=== PATIENT | male | born 1950 | race Caucasian/White ===

== ENCOUNTER 2016-11-17 21:57 | Emergency (ER) | payer OTHER, MEDICARE ==
--- NOTE | 2016-11-17 22:00 | PDOC ---
History of Present Illness - General Chief Complaint: Laceration Stated Complaint: RT FOOT LAC Time Seen by Provider: 11/17/16 22:00 History Source: Patient Exam Limitations: No Limitations - History of Present Illness Initial Comments: 11/17/16 22:22 Pt presents to the ED complaining of laceration to the dorsum of the R great toe that occurred after he got something on the left foot that he wiped off onto the R foot. Denies other injuries. Applied pressure at home without relief of the bleeding, so he presented to the ED. Denies other complaints. Timing/Duration: 1/2 hour Severity: mild Past History - Past Medical History Allergies/Adverse Reactions: Allergies Allergy/AdvReac Type Severity Reaction Status Date / Time No Known Allergies Allergy Unverified 11/17/16 22:02 Home Medications: Ambulatory Orders Amlodipine Besylate [Norvasc -] 5 mg PO DAILY 11/17/16 Aspirin [Ecotrin] 81 mg PO DAILY 11/17/16 Atenolol [Tenormin -] 50 mg PO DAILY 11/17/16 Duloxetine HCl [Cymbalta] 60 mg PO DAILY 11/17/16 Trazodone HCl 100 mg PO HS 11/17/16 Review of Systems - Review of Systems Comments:: 11/17/16 22:24 Complaining of laceration to the foot--no other complaints. Is the patient limited Dutch proficient: No *Physical Exam - Physical Exam Comments: 11/17/16 22:25 + 1 cm very superficial laceration just below the R first MTP joint. No subcutaneous tissue exposed. No active bleeding on initial exam--small amount of bleeding after wound irrigated with saline. Procedures - Laceration/Wound Repair Right Dorsal Foot Wound Length: to 2.5 cm Wound's Depth, Shape: superficial Irrigated w/ Saline: Yes Betadine Prep: No Wound Debrided: minimal Wound Repaired With: Dermabond Layer Closure: No Sterile Dressing Applied: No Splint Applied: No Medical Decision Making - Medical Decision Making 11/17/16 22:26 Patient presents to the ED complaining of open wound to the R foot. Very superficial laceration on exam--wound is too superficial for foreign body. Laceration repaired with dermabond. Will discharge home. 11/17/16 22:27 *DC/Admit/Observation/Transfer Diagnosis at time of Disposition: Laceration - Discharge Dispostion Condition at time of disposition: Stable Admit: No - Referrals Referrals: Dong Diane [Primary Care Provider] - - Patient Instructions Printed Discharge Instructions: DI for Laceration Repair Additional Instructions: Return for bleeding, painful swollen, red tender foot, fever. The dermabond will fall off by itself. Try not to rub it, as this may make the dermabond come off before the wound is healed.
[2016-11-17 22:11] VITALS: BP 150/96; PULSE 75; TEMP 98.2; BMI 27.2
[2016-11-17] MEDS ORDERED: DIPHTH,PERTUSS(ACELL),TET 0.5 ML DISP.SYRIN IM ONE (22:22)
== END 2016-11-17 22:47 | disposition home or self-care (01) ==
LOC: FER 21:57
PROC: 0HQMXZZ Repair Right Foot Skin, External Approach (ICD-10-PCS; principal; 2016-11-17)
DX: S91.111A Laceration without foreign body of right great toe without damage to nail, initial encounter (principal); W45.8XXA Other foreign body or object entering through skin, initial encounter; Y93.89 Activity, other specified; Y92.9 Unspecified place or not applicable
CPT/HCPCS: 90715; 99281-25

== ENCOUNTER 2019-12-17 00:52 | Emergency (ER) | payer OTHER, MEDICARE ==
--- OUTSIDE RECORDS SUMMARY | 2019-12-17 00:59 | XMS ---
:1950 Author Organization [facility] Care Team Providers Name Role Phone Rogers Browne Unavailable Unavailable Nicky Clay DO Unavailable Unavailable Rasheeda Yost MD Unavailable Unavailable Long Schreiber MD Unavailable Unavailable Re-disclosure Warning The records that you are about to access may contain information from federally- assisted alcohol or drug abuse programs. If such information is present, then the following federally mandated warning applies: This information has been disclosed to you from records protected by federal confidentiality rules (42 CFR part 2). The federal rules prohibit you from making any further disclosure of this information unless further disclosure is expressly permitted by the written consent of the person to whom it pertains or as otherwise permitted by 42 CFR part 2. A general authorization for the release of medical or other information is NOT sufficient for this purpose. The Federal rules restrict any use of the information to criminally investigate or prosecute any alcohol or drug abuse patient.The records that you are about to access may contain highly sensitive health information, the redisclosure of which is protected by Article 27-F of the [facility] Public Health law. If you continue you may haveaccess to information: Regarding HIV / AIDS; Provided by facilities licensed or operated by the [facility] Office of Mental Health; or Provided by the [facility] Office for People With Developmental Disabilities. If such information is present, then the following [facility] mandated warning applies: This information has been disclosed to you from confidential records which are protected by state law. State law prohibits you from making any further disclosure of this information without the specific written consent of the person to whom it pertains, or as otherwise permitted by law. Any unauthorized further disclosure in violation of state law may result in a fine or fpc sentence or both. A general authorization for the release of medical or other information is NOT sufficient authorization for further disclosure. 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 Encounters Encounter Providers Location Date Indications Data Source(s ) Emergency Attender: 09/29/[place] Clay DO 09:44:00 PM [facility]pi [facility] EDT - 09/30/2019 02:41:00 AM EDT pneumonia [place] Patient discharged. Inpatient Attender: Rasheeda Yost 09/24/2019 SUSPESTED COVID [facility] MDAttender: Long 12:32:00 PM EDT - Hospital Candie MDAttender: 09/26/2019 Rogers BrowneAdmitter: 11:40:00 AM EDT Long Schreiber MD SUSPESTED COVID Patient discharged. Medications Medication Brand Start Product Dose Route Administrative Pharmacy [facility] Indications Reaction Description Data Name Date Form Instructions Instructions Source(s) Alprazolam Alpraz 07/02/ TABLET 0.25 ORAL active W mary grace 0.25 MG olam 2020 mg [facility] Oral Tablet 09:04: Hospit al 00 AM EDT Alprazolam Alpraz // TABLET 0.25 ORAL active W mary grace 0.25 MG olam 2020 mg [facility] Oral Tablet 09:04: Hospit al 00 AM EDT doxycycline Doxycy 07// CAPSULE, 100 ORAL active White hyclate 100 [place] 2020 DELAYED [place] MG Oral Hyclat 09:02: RELEASE Hospi [facility] Capsule e 00 AM [Vibramycin EDT ] Doxycycline Hyclate doxycycline Doxycy 07// CAPSULE, 100 ORAL active White hyclate 100 waldron 2020 DELAYED [place] [facility] MG Oral Hyclat 09:02: RELEASE Hospi [facility]cy Capsule e 00 AM [Vibramycin EDT ] Doxycycline Hyclate Amlodipine Amlodi TABLET 5 mg ORAL active Whi te 5 MG Oral pine [facility] Tablet [facility] [[facility]] te Amlodipine Besylate Trazodone Trazod TABLET 50 mg ORAL complet Wh ite Hydrochlori one ed [facility] de 150 [facility] Oral Tablet Trazodone Hcl Trazodone Trazod TABLET 100 ORAL active Whit e Hydrochlori one mg [facility] de 150 [facility] Oral Tablet Trazodone Hcl Trazodone Trazod TABLET 100 ORAL active Whit e Hydrochlori one mg [facility] de 150 MG [facility] Oral Tablet Trazodone Hcl gabapentin Gabape CAPSULE 400 ORAL active Wh ite 400 MG Oral ntin mg [facility] Capsule [facility] Gabapentin duloxetine Duloxe CAPSULE, 60 mg ORAL active White 60 MG anselmo DELAYED [facility] Delayed Hcl RELEASE Hospital Release Oral Capsule [Cymbalta] Duloxetine Hcl Trazodone Trazod TABLET 50 mg ORAL complet Wh ite Hydrochlori one ed [facility] de 150 MG [facility] Oral Tablet Trazodone Hcl duloxetine Duloxe CAPSULE, 60 mg ORAL active [facility] 60 MG anselmo DELAYED [facility] Delayed Hcl RELEASE Hospital Release Oral Capsule [Cymbalta] Duloxetine Hcl Amlodipine Amlodi TABLET 5 mg ORAL active Whi te 5 MG Oral pine [facility] Tablet [facility] [Norvasc] te Amlodipine Besylate Atenolol 50 Atenol TABLET 50 mg ORAL active W mary grace MG Oral ol [facility]t [facility] gabapentin Gabape CAPSULE 400 ORAL active Wh ite 400 MG Oral ntin mg [facility] Capsule [facility] Gabapentin Atenolol 50 Atenol TABLET 50 mg ORAL active W mary grace MG Oral ol [facility] Tablet [facility] Insurance Providers Payer name Policy type Policy ID Covered Covered constitution party's Policy P cyrus / Coverage constitution party ID relationship to Hung Inf ormation type hung [facility] [id number] SP [id number] CARE [employer]IONS MEDICARE [id number] SP [id number] A [facility] [id number] PT [id number] C[employer] MEDICARE [id number] PT [id number] [facility] [id number] PT [id number] CARE OPTIONS [facility] [id number] SP [id number] (PHS) Problems, Conditions, and Diagnoses Code Display Name Description Problem Type Effective Dates Data Source(s) R06.02 Shortness of breath R06.02 Diagnosis 09/29/2019 [facility] 09:57:00 PM EDT Hospital M79.7 Fibromyalgia M79.7 Diagnosis 09/29/2019 [facility] 09:57:00 PM EDT Hospital E87.1 Hypo-osmolality and E87.1 Diagnosis 09/29/2019 [facility] hyponatremia 09:57:00 PM EDT Hospita l Z87.891 Personal history of Z87.891 Diagnosis 09/24/2019 [facility] nicotine dependence 03:41:00 PM EDT Hospital Z87.01 Personal history of Z87.01 Diagnosis 09/24/2019 [facility] pneumonia 03:41:00 PM EDT Hospital (recurrent) Z20.828 Contact with and Z20.828 Diagnosis 09/24/[address] [place] (suspected) exposure 03:41:00 PM EDT Hospital to other viral communicable diseases K51.90 Ulcerative colitis, K51.90 Diagnosis 09/24/2019 [facility] unspecified, without 03:41:00 PM EDT Hospital complications I48.0 Paroxysmal atrial I48.0 Diagnosis 09/24/2019 [place] fibrillation 03:41:00 PM EDT Hospita l I10 Essential (primary) I10 Diagnosis 09/24/2019 [facility] hypertension 03:41:00 PM EDT Hospita l R91.1 Solitary pulmonary R91.1 Diagnosis 09/24/2019 [facility] nodule 03:41:00 PM EDT Hospital Z11.59 Encounter for Z11.59 Diagnosis 09/24/2019 [place] screening for other 03:41:00 PM EDT Hospital viral diseases J18.9 Pneumonia, J18.9 Diagnosis 09/24/2019 [facility] unspecified organism 03:41:00 PM EDT Hospital Surgeries/Procedures Procedure Description Date Indications Data Source(s) Computed tomography 09/30/[address] [place] angiography of thorax 12:00:00 AM Hospit al (procedure) EDT Diagnostic radiography of 09/29/2019 ite [place] chest, combined 12:00:00 AM Hospital posteroanterior and lateral EDT (procedure) Electrocardiographic procedure 09/29/2019 [facility] (procedure) 12:00:00 AM Hospital EDT Plain chest X-ray (procedure) 09/26/2019 [facility] 12:00:00 AM Hospital EDT Plain chest X-ray (procedure) 09/26/2019 [facility] 12:00:00 AM Hospital EDT Chest percussion therapy 09/24/2019 [facility] [place] (regime/therapy) 12:00:00 AM Hospital EDT Incentive spirometry 09/24/2019 [place] (regime/therapy) 12:00:00 AM Hospital EDT Computed tomography of chest 09/24/2019 [facility] without contrast 12:00:00 AM Hospital EDT Electrocardiographic procedure 09/24/2019 [facility] (procedure) 12:00:00 AM Hospital EDT Chest percussion therapy 09/24/2019 [facility] [place] (regime/therapy) 12:00:00 AM Hospital EDT Incentive spirometry 09/24/2019 [place] (regime/therapy) 12:00:00 AM Hospital EDT Computed tomography of chest 09/24/2019 [facility] without contrast 12:00:00 AM Hospital EDT Electrocardiographic procedure 09/24/2019 [facility] (procedure) 12:00:00 AM Hospital EDT Results ID Date Data Source [id number] 12/07/2019 01:36:00 PM EDT [facility] Name Value Range Interpretation Description Data Sup porting Code Source(s) Document(s ) 2019 Novel [facility] Coronavirus RNA Interpretation Unspecified Specimen Qualitative RENE Probe Detection This lab was ordered by [facility] reported by [facility]. ID Date Data Source [id number] 09/30/2019 01:00:00 AM EDT [facility] Value Range Interpretation Description Data Sup porting Code Source(s) Document(s ) Erythrocytes 0-3 [facility] [#/area] in /[HPF] Hospital Urine sediment by Microscopy high power field ID Date Data Source [id number] 09/30/2019 01:00:00 AM EDT [facility] Value Range Interpretation Description Data Sup porting Code Source(s) Document(s ) Leukocytes 0-3 [facility] [#/area] in /[HPF] Hospital Urine sediment by Microscopy high power field ID Date Data Source [id number] 09/30/2019 01:00:00 AM EDT [facility] Value Range Interpretation Description Data Sup porting Code Source(s) Document(s ) Leukocyte NEGATIVE [facility] esterase [facility] [Presence] in Urine by Test strip ID Date Data Source [id number] 09/30/2019 01:00:00 AM EDT [facility] Name Value Range Interpretation Description Data Sup porting Code Source(s) Document(s ) URINE NEGATIVE [facility] NITRITES [facility] ID Date Data Source [id number] 09/30/2019 01:00:00 AM EDT [facility] Name Value Range Interpretation Description Data Sup porting Code Source(s) Document(s ) Erythrocytes NEGATIVE [facility] [#/volume] in Hospital Urine by Test strip ID Date Data Source [id number] 09/30/2019 01:00:00 AM EDT [facility] Value Range Interpretation Code Description Data Nelda rce(s) Supporting Document(s ) Bilirubin. NEGATIVE [facility] total Hospital [Presence] in Urine by Test strip ID Date Data Source [id number] 09/30[facility] Interpretation Description Data Sup porting Code Source(s) Document(s ) Urobilinogen 0.2 [facility] [Units/volume] mg/dL Hospital in Urine by Test strip ID Date Data Source [id number] 09/30/2019 01:00:00 AM EDT [facility] Value Range Interpretation Description Data Sup porting Code Source(s) Document(s ) Ketones NEGATIVE [facility] [Mass/volume Hospital ] in Urine by Test strip ID Date Data Source [id number] 09/30/2019 [facility] Value Range Interpretation Description Data Sup porting Code Source(s) Document(s ) Glucose NEGATIVE [facility] [Mass/volume Hospital ] in Urine by Test strip ID Date Data Source [id number] 09/30/2019 01:00:00 AM EDT [facility] Name Value Range Interpretation Code Description Data Nelda rce(s) Supporting Document(s ) Protein 1+ [facility] [Presence] Hospital in Urine by Test strip ID Date Data Source [id number] 09/30/2019 01:00:00 AM EDT [facility] Name Value Range Interpretation Code Description Data Nelda rce(s) Supporting Document(s ) pH of Urine 7.0 [facility] by Test Hospital strip ID Date Data Source [id number] 09/30/2019 [facility] Name Value Range Interpretation Code Description Data Supporting Source(s) Document(s ) Specific 1.037 [facility] gravity of Hospital Urine by Test strip ID Date Data Source [id number] 09/30/2019 01:00:00 AM EDT [facility] Name Value Range Interpretation Description Data Sup porting Code Source(s) Document(s ) Clarity in Urine CLEAR [facility] by Refractometry Hospital automated ID Date Data Source [id number] 09/30/2019 [facility]:00[facility] Name Value Range Interpretation Code Description Data Nelda rce(s) Supporting Document(s ) Color of YELLOW [facility] Urine Hospital ID Date Data Source [id number] 09/29/2019 10:10:00 [facility] [employer]:HERMINIA ELDRIDGE Name Value Range Interpretation Description Data Sup porting Code Source(s) Document(s ) Glucose 111 mg/dL [facility] [Mass/volume] [facility] in Capillary blood by Glucometer ID Date Data Source [id number] 09/29/2019 10:08:[facility] Name Value Range Interpretation Description Data Sup porting Code Source(s) Document(s ) Ferritin 48.0 [facility] [Mass/volume ng/mL Hospital ] in Serum or Plasma ID Date Data Source [id number] 09/29/2019 10:08:00 PM [facility] TEST PERFORMED BY [employer] UL[employer] SENSITIVE [facility] CHEMILUMINESCENCE METHOD. Name Value Range Interpretation Description Data Sup porting Code Source(s) Document(s ) Troponin < 0.01 [facility] I.cardiac ng/mL Hospital [Mass/volume ] in Serum or Plasma ID Date Data Source [id number] 09/29/2019 10:08:00 PM EDT [facility] Name Value Range Interpretation Description Data Sup porting Code Source(s) Document(s ) Procalcitonin 1.4 [facility] [Mass/volume] in ng/mL Hospital Serum or Plasma ID Date Data Source [id number] 09/29/2019 10:08:00 PM EDT [facility] Name Value Range Interpretation Description Data Sup porting Code Source(s) Document(s ) Lactate 0.6 [facility] [Moles/volum mmol/L Hospital e] in Serum or Plasma ID Date Data Source [id number] 09/29/2019 10:08:[facility] Name Value Range Interpretation Code Description Data Nelda rce(s) Supporting Document(s ) Lipase 21 U/L [facility] [Enzymatic Hospital activity/vo lume] in Serum or Plasma ID Date Data Source [id number] 09/29/2019 10:08:[facility] Name Value Range Interpretation Description Data Sup porting Code Source(s) Document(s ) Magnesium 2.2 mg/dL [facility] [Mass/volume] Hospital in Serum or Plasma ID Date Data Source [id number] 09/29/2019 10:08:[facility] Name Value Range Interpretation Code Description Data Supporting Source(s) Document(s ) Creatine 49 U/L [facility] kinase Hospital [Enzymatic activity/volu me] in Serum or Plasma ID Date Data Source [id number] 09/29/2019 10:08:00 PM EDT [facility] Name Value Range Interpretation Description Data Sup porting Code Source(s) Document(s ) Lactate 156 U/L [facility] dehydrogenase Hospital [Enzymatic activity/volume] in Serum or Plasma ID Date Data Source [id number] 09/29/2019 10:08:00 PM EDT [facility] Name Value Range Interpretation Description Data Sup porting Code Source(s) Document(s ) Aspartate 61 U/L [place] aminotransferase [facility] [Enzymatic Hospital activity/volume] in Serum or Plasma ID Date Data Source [id number] 09/29/2019 10:08:00 PM EDT [facility] Name Value Range Interpretation Description Data Sup porting Code Source(s) Document(s ) Alanine 90 U/L [place] aminotransferase [facility] [Enzymatic Hospital activity/volume] in Serum or Plasma ID Date Data Source [id number] 09/29/2019 10:08:[facility] Name Value Range Interpretation Description Data Sup porting Code Source(s) Document(s ) Alkaline 47 U/L [facility] phosphatase [facility] [Enzymatic activity/volume ] in Serum or Plasma ID Date Data Source [id number] 09/29/2019 10:08:[facility] Name Value Range Interpretation Description Data Sup porting Code Source(s) Document(s ) Bilirubin.t 0.4 mg/dL [facility] [Mass/volum e] in Serum or Plasma ID Date Data Source [id number] 09/29/2019 10:08:[facility] Name Value Range Interpretation Code Description Data Nelda rce(s) Supporting Document(s ) Albumin/Glob 1.8 [facility] ulin [Mass Hospital Ratio] in Serum or Plasma ID Date Data Source [id number] 09/29/2019 10:08:00 PM EDT [facility] Name Value Range Interpretation Description Data Sup porting Code Source(s) Document(s ) Albumin 4.5 g/dL [facility] [Mass/volume Hospital ] in Serum or Plasma ID Date Data Source [id number] 09/29/2019 10:08:00 PM EDT [facility] Name Value Range Interpretation Description Data Sup porting Code Source(s) Document(s ) Protein 7.0 g/dL [facility] [Mass/volume Hospital ] in Serum or Plasma ID Date Data Source [id number] 09/29/2019 10:08:00 PM EDT [facility] Name Value Range Interpretation Description Data Sup porting Code Source(s) Document(s ) Calcium 10.0 [facility] [Mass/volume mg/dL Hospital ] in Serum or Plasma ID Date Data Source [id number] 09/29/2019 10:08:00 PM EDT [facility] Name Value Range Interpretation Code Description Data Nelda rce(s) Supporting Document(s ) Urea 11.0 [facility] nitrogen/Cre Hospital atinine [Mass Ratio] in Serum or Plasma ID Date Data Source [id number] 09/29/2019 10:08:00 PM EDT [facility] Name Value Range Interpretation Description Data Sup porting Code Source(s) Document(s ) Creatinine 1.0 mg/dL [facility] [Mass/volume] Hospital in Serum or Plasma ID Date Data Source [id number] 09/29/2019 10:08:00 PM EDT [facility] Name Value Range Interpretation Description Data Sup porting Code Source(s) Document(s ) Urea 11 mg/dL [facility] nitrogen Hospital [Mass/volume ] in Serum or Plasma ID Date Data Source [id number] 09/29/2019 10:08:00 PM EDT [facility] Name Value Range Interpretation Code Description Data Nelda rce(s) Supporting Document(s ) Anion gap in 11 [facility] Serum or [facility] Plasma ID Date Data Source [id number] 09/29/2019 10:08:00 PM EDT [facility] Name Value Range Interpretation Description Data Sup porting Code Source(s) Document(s ) Carbon 29 mmol/L [facility] dioxide, Hospital total [Moles/volu me] in Serum or Plasma ID Date Data Source [id number] 09/29/2019 10:08:00 PM EDT [facility] Value Range Interpretation Description Data Sup porting Code Source(s) Document(s ) Chloride 96 mmol/L [facility] [Moles/volum Hospital e] in Serum or Plasma ID Date Data Source [id number] 09/29/2019 10:08:00 PM EDT [facility] Name Value Range Interpretation Description Data Sup porting Code Source(s) Document(s ) Potassium 4.0 [facility] [Moles/volume mmol/L Hospital ] in Serum or Plasma ID Date Data Source [id number] 09/29/2019 10:08:00 PM EDT [facility] Name Value Range Interpretation Description Data Sup porting Code Source(s) Document(s ) Sodium 132 mmol/L [facility] [Moles/volu Hospital me] in Serum or Plasma ID Date Data Source [id number] 09/29/2019 10:08:00 PM EDT [facility] Name Value Range Interpretation Description Data Sup porting Code Source(s) Document(s ) Glucose 106 mg/dL [facility] [Mass/volume Hospital ] in Serum or Plasma ID Date Data Source [id number] 09/29/2019 10:08:00 PM EDT [facility] A VALUE LESS THAN 500 NG/ML FEU IN PATIE NTS UNDER AGE 50, WHEN COMBINED WITH A CLINICAL ASSESSMENT OF LOW PRETEST PROBA BILITY, HAS BEEN SHOWN TO HAVE A HIGH NEGATIVE PREDICTIVE VALUE FOR DVT OR PE. USING AGE-ADJUSTED THRESHOLDS (AGE X 10) IN PATIENTS OLDER THAN 50 YEARS IS RECOMMEN DED FOR DETERMINING WHETHER IMAGING IS WARRANTED.D-DIMER IS NOT A SPECIFIC ELBA ER FOR DVT OR PE AND CAN BE ELEVATED IN THE ELDERLY WELL IN THE FOLLOWING COND ITIONS: , CANCER, INFECTION, DIC, TRAUMA AND INFLAMMATION. Name Value Range Interpretation Description Data Sup porting Code Source(s) Document(s ) Fibrin 804 ng/mL [facility]U [facility] [Mass/volume ] in Platelet poor plasma ID Date Data Source [id number] 09/29/2019 10:08:00 PM EDT [facility] THERAPEUTIC RANGES:UNFRACTIONATED HEPARI N THERAPY: 60-90 SECONDSARGATROBAN THERAPY: 49-99 SECONDS Name Value Range Interpretation Description Data Sup porting Code Source(s) Document(s ) aPTT in 30.7 s [facility] Platelet poor Hospital plasma by Coagulation assay ID Date Data Source [id number] 09/29/2019 10:08:00 PM EDT [facility] THERAPEUTIC RANGE FOR STANDARD ORALANTIC OAGULANT THERAPY: 2.0-3.0THERAPEUTIC RANGE FOR HIGH DOSE ORALANTICOAGULANT THERAPY (MECHANICAL HEARTVALVE REPLACEMENT): 2.5-3.5 Name Value Range Interpretation Description Data Sup porting Code Source(s) Document(s ) INR in Platelet 1.1 [facility] poor plasma by Hospital Coagulation assay ID Date Data Source [id number] 09/29/2019 10:08:00 PM EDT [facility] Name Value Range Interpretation Description Data Sup porting Code Source(s) Document(s ) PT panel - 13.4 s [facility] Platelet poor Hospital plasma by Coagulation assay ID Date Data Source [id number] 09/29/2019 10:08:00 PM EDT [facility] Name Value Range Interpretation Description Data Sup porting Code Source(s) Document(s ) Manual MANUAL [facility] differential Hospital performed [Presence] in Blood ID Date Data Source [id number] 09/29/2019 10:08:00 PM EDT [facility] Value Range Interpretation Code Description Data Nelda rce(s) Supporting Document(s ) Cells 100 [facility] Hospital Total [#] in Blood ID Date Data Source [id number] 09/29/2019 10:08:00 PM EDT [facility] Value Range Interpretation Code Description Data Supporting Source(s) Document(s ) PLATELET NORMAL [facility] COMMENT Hospital ID Date Data Source [id number] 09/29/2019 10:08:00 PM EDT [facility] Value Range Interpretation Code Description Data Nelda rce(s) Supporting Document(s ) RBC COMMENT NORMAL [facility] ID Date Data Source [id number] 09/29/2019 [facility] Interpretation Description Data Sup porting Code Source(s) Document(s ) Eosinophils 0.16 [facility] [#/volume] in 10*3/uL Hospital Blood by Manual count ID Date Data Source [id number] 09/29/2019 10:08:00 PM EDT [facility] Name Value Range Interpretation Description Data Sup porting Code Source(s) Document(s ) Monocytes 0.98 [facility] [#/volume] in 10*3/uL Hospital Blood by Manual count ID Date Data Source [id number] 09/29/2019 10:08:00 PM EDT [facility] Name Value Range Interpretation Description Data Sup porting Code Source(s) Document(s ) Lymphocytes 1.80 [facility] [#/volume] in 10*3/uL Hospital Blood by Manual count ID Date Data Source [id number] 09/29/2019 10:08:00 PM EDT [facility] Name Value Range Interpretation Description Data Sup porting Code Source(s) Document(s ) Neutrophils 5.25 [facility] [#/volume] in 10*3/uL Hospital Blood by Manual count ID Date Data Source [id number] 09/29/2019 10:08:00 PM EDT [facility] Name Value Range Interpretation Description Data Sup porting Code Source(s) Document(s ) Eosinophils/100 2 % [facility] leukocytes in Hospital Blood by Manual count ID Date Data Source [id number] 09/29/2019 10:08:00 PM EDT [facility] Value Range Interpretation Description Data Sup porting Code Source(s) Document(s ) Monocytes/100 12 % [facility] leukocytes in Hospital Blood by Manual count ID Date Data Source [id number] 09/29/2019 10:08:00 PM EDT [facility] Value Range Interpretation Description Data Sup porting Code Source(s) Document(s ) Lymphocytes/100 22 % [facility] leukocytes in [facility] Blood by Manual count ID Date Data Source [id number] 09/29/2019 10:08:00 PM EDT [facility] Value Range Interpretation Description Data Sup porting Code Source(s) Document(s ) Neutrophils/100 64 % [facility] leukocytes in [facility] Blood by Manual count ID Date Data Source [id number] 09/29/2019 10:08:00 PM EDT [facility] Value Range Interpretation Description Data Sup porting Code Source(s) Document(s ) Platelet mean 9.4 fL [facility] volume [facility] [Entitic volume] in Blood by Automated count ID Date Data Source [id number] 09/29[facility] Interpretation Description Data Sup porting Code Source(s) Document(s ) Platelets 256 [facility] [#/volume] in 10*3/uL Hospital Blood by Automated count ID Date Data Source [id number] 09/29/2019 10:08:00 PM EDT [facility] Value Range Interpretation Description Data Sup porting Code Source(s) Document(s ) Erythrocyte 11.1 % [facility] distribution [facility] width [Ratio] by Automated count ID Date Data Source [id number] 09/29/2019 [facility] Value Range Interpretation Description Data Sup porting Code Source(s) Document(s ) Erythrocyte mean 35.3 [facility] corpuscular g/dL Hospital hemoglobin concentration [Mass/volume] by Automated count ID Date Data Source [id number] 09/29/2019 10:08:[address] [facility] [place] Value Range Interpretation Description Data Sup porting Code Source(s) Document(s ) Erythrocyte 30.3 pg [facility] corpuscular hemoglobin [Entitic mass] by Automated count ID Date Data Source [id number] 09/29/2019 10:08:[address] [facility] Value Range Interpretation Description Data Sup porting Code Source(s) Document(s ) Erythrocyte 85.7 fL [facility] corpuscular volume [Entitic volume] by Automated count ID Date Data Source [id number] 09/29/2019 10:08:[address] [facility] Value Range Interpretation Description Data Sup porting Code Source(s) Document(s ) Hematocrit 40.8 % [facility] [Volume Hospital Fraction] of Blood by Automated count ID Date Data Source [id number] 09/29/2019 10:08:00 PM EDT [facility] Name Value Range Interpretation Description Data Sup porting Code Source(s) Document(s ) Hemoglobin 14.4 g/dL [facility] [Mass/volume] Hospital in Blood ID Date Data Source [id number] 09/29/2019 10:08:00 PM EDT [facility] Name Value Range Interpretation Description Data Sup porting Code Source(s) Document(s ) Erythrocytes 4.76 [facility] [#/volume] in 10*6/uL Hospital Blood by Automated count ID Date Data Source [id number] 09/29/2019 10:08:00 PM EDT [facility] Name Value Range Interpretation Description Data Sup porting Code Source(s) Document(s ) Leukocytes 8.2 [facility] [#/volume] in 10*3/uL Hospital Blood by Automated count ID Date Data Source [id number] 09/26/2019 06:55:00 AM EDT [facility] It is not known at this time if the pres ence of antibodies to SARS-CoV-2 confers immunity to re-infection.Negative result s do not rule out SARS-CoV-2 infection, particularly in those who have been in c ontact with the virus. Follow up testing with a molecular diagnostic assay should be considered to rule out infection in these individuals.Results from antibody testin g should not be used as the sole basis to diagnose or exclude SARS-CoV2 infection or to inform infection status.Positive results may be due to past or present in fection with [id number] coronavirus strains, such as coronavirus HKU1, NL63, OC43, 229E or other possible causesThis test is not authorized for donor screening.Th e [employer] SARS-CoV-2 Total antibody assay has not been FDA cleared or approved; the test has been authorized by FDA under an Emergency Use Authorization (EUA).This test is only authorized for the duration of the emergency use declaratio n that circumstances exist justifying the authorization of emergency use of in vit ro diagnostic tests for detection and/or diagnosis of COVID-19, unless the author ization is terminated or revoked sooner.This test has been authorized only for detec ting the presence of antibodies against SARS-CoV-2, not for any other viruses or pathogens.For prescription use only. Name Value Range Interpretation Code Description Data Nelda rce(s) Supporting Document(s ) SARS COV2 NEGATIVE [facility] TOTAL AB Hospital ID Date Data Source [id number] 09/26/2019 06:55:00 AM EDT [facility] Name Value Range Interpretation Code Description Data Supporting Source(s) Document(s ) NUCLEATED RBCS 0.0 % [facility] (AUTO Hospital DIFF%)DIS ID Date Data Source [id number] 09/26/2019 06:55:00 AM EDT [facility] Name Value Range Interpretation Description Data Sup porting Code Source(s) Document(s ) Differential AUTOMATED [facility] cell count [facility] method - Blood ID Date Data Source [id number] 09/26/2019 06:55:00 AM EDT [facility] Name Value Range Interpretation Description Data Sup porting Code Source(s) Document(s ) Immature 0.06 [facility] granulocytes 10*3/uL Hospital [#/volume] in Blood by Automated count ID Date Data Source [id number] 09/26/2019 06:55:00 AM EDT [facility] Name Value Range Interpretation Description Data Sup porting Code Source(s) Document(s ) Basophils 0.03 [facility] [#/volume] in 10*3/uL Hospital Blood by Automated count ID Date Data Source [id number] 09/26/2019 06:55:00 AM EDT [facility] Name Value Range Interpretation Description Data Sup porting Code Source(s) Document(s ) Eosinophils 0.21 [facility] [#/volume] in 10*3/uL Hospital Blood by Automated count ID Date Data Source [id number] 09/26/2019 06:55:00 AM EDT [facility] Value Range Interpretation Description Data Sup porting Code Source(s) Document(s ) Monocytes 0.83 [facility] [#/volume] in 10*3/uL Hospital Blood by Automated count ID Date Data Source [id number] 09/26/2019 06:55:00 AM EDT [facility] Value Range Interpretation Description Data Sup porting Code Source(s) Document(s ) Lymphocytes 1.57 [facility] [#/volume] in 10*3/uL Hospital Blood by Automated count ID Date Data Source [id number] 09/26/2019 06:55:00 AM EDT [facility] Value Range Interpretation Description Data Sup porting Code Source(s) Document(s ) Neutrophils 4.47 [facility] [#/volume] in 10*3/uL Hospital Blood by Automated count ID Date Data Source [id number] 09/26/2019 06:55:00 AM EDT [facility] Value Range Interpretation Description Data Sup porting Code Source(s) Document(s ) Nucleated 0.0 % [facility] erythrocytes/10 Hospital 0 leukocytes [Ratio] in Blood by Automated count ID Date Data Source [id number] 09/26/2019 06:55:00 AM EDT [facility] Value Range Interpretation Description Data Sup porting Code Source(s) Document(s ) Immature 0.8 % [facility] granulocytes/10 Hospital 0 leukocytes in Blood by Automated count ID Date Data Source [id number] 09/26/2019 06:55:00 AM EDT [facility] Value Range Interpretation Description Data Sup porting Code Source(s) Document(s ) Basophils/100 0.4 % [facility] leukocytes in Hospital Blood by Automated count ID Date Data Source [id number] 09/26/2019 06:55:00 AM EDT [facility] Name Value Range Interpretation Description Data Sup porting Code Source(s) Document(s ) Eosinophils/100 2.9 % [facility] leukocytes in Hospital Blood by Automated count ID Date Data Source [id number] 09/26/2019 06:55:00 AM EDT [facility] Name Value Range Interpretation Description Data Sup porting Code Source(s) Document(s ) Monocytes/100 11.6 % [facility] leukocytes in [facility] Blood by Automated count ID Date Data Source [id number] 09/26/2019 [facility] Value Range Interpretation Description Data Sup porting Code Source(s) Document(s ) Lymphocytes/10 21.9 % [facility] 0 leukocytes Hospital in Blood by Automated count ID Date Data Source [id number] 09/26/2019 [facility]:55[facility] Name Value Range Interpretation Description Data Sup porting Code Source(s) Document(s ) Neutrophils/10 62.4 % [facility] 0 leukocytes Hospital in Blood by Automated count ID Date Data Source [id number] 09/26/2019 06:55:00 AM [facility] It is not known at this time if the pres ence of antibodies to SARS-CoV-2 confers immunity to re-infection.Negative result s do not rule out SARS-CoV-2 infection, particularly in those who have been in c ontact with the virus. Follow up testing with a molecular diagnostic assay should be considered to rule out infection in these individuals.Results from antibody testin g should not be used as the sole basis to diagnose or exclude SARS-CoV2 infection or to inform infection status.Positive results may be due to past or present in fection with xxj-[id number]-CyG1 coronavirus strains, such as coronavirus HKU1, NL63, OC43, 229E or other possible causesThis test is not authorized for donor screening.Th e [employer] SARS-CoV-2 Total antibody assay has not been FDA cleared or approved; the test has been authorized by FDA under an Emergency Use Authorization (EUA).This test is only authorized for the duration of the emergency use declaratio n that circumstances exist justifying the authorization of emergency use of in vit ro diagnostic tests for detection and/or diagnosis of COVID-19, unless the author ization is terminated or revoked sooner.This test has been authorized only for detec ting the presence of antibodies against SARS-CoV-2, not for any other viruses or pathogens.For prescription use only. Name Value Range Interpretation Code Description Data Nelda rce(s) Supporting Document(s ) SARS COV2 NEGATIVE [facility] TOTAL AB Hospital ID Date Data Source [id number] 09/26/2019 06:55:00 AM EDT [facility] Name Value Range Interpretation Description Data Sup porting Code Source(s) Document(s ) Aspartate 20 U/L [facility] aminotransferase [facility] [Enzymatic Hospital activity/volume] in Serum or Plasma ID Date Data Source [id number] 09/26/2019 06:55[facility] Name Value Range Interpretation Description Data Sup porting Code Source(s) Document(s ) Alanine 25 U/L [facility] aminotransferase [facility] [Enzymatic Hospital activity/volume] in Serum or Plasma ID Date Data Source [id number] 09/26/2019 06:55:00 AM EDT [facility] Name Value Range Interpretation Description Data Sup porting Code Source(s) Document(s ) Alkaline 42 U/L [facility] phosphatase [facility] [Enzymatic activity/volume ] in Serum or Plasma ID Date Data Source [id number] 09/26/2019 06:55:00 AM [facility] Name Value Range Interpretation Description Data Sup porting Code Source(s) Document(s ) Bilirubin.t 0.4 mg/dL [facility] [Mass/volum e] in Serum or Plasma ID Date Data Source [id number] 09/26/2019 06:55:00 AM EDT [facility] Name Value Range Interpretation Code Description Data Nelda rce(s) Supporting Document(s ) Albumin/Glob 1.6 [facility] ulin [Mass Hospital Ratio] in Serum or Plasma ID Date Data Source [id number] 09/26/2019 06:55:00 AM EDT [facility] Name Value Range Interpretation Description Data Sup porting Code Source(s) Document(s ) Albumin 3.9 g/dL [facility] [Mass/volume Hospital ] in Serum or Plasma ID Date Data Source [id number] 09/26/2019 06:55:00 AM EDT [facility] Name Value Range Interpretation Description Data Sup porting Code Source(s) Document(s ) Protein 6.3 g/dL [facility] [Mass/volume Hospital ] in Serum or Plasma ID Date Data Source [id number] 09/26/2019 06:55:00 AM EDT [facility] Name Value Range Interpretation Description Data Sup porting Code Source(s) Document(s ) Calcium 9.0 mg/dL [facility] [Mass/volume Hospital ] in Serum or Plasma ID Date Data Source [id number] 09/26/2019 06:55:00 AM EDT [facility] Name Value Range Interpretation Code Description Data Nelda rce(s) Supporting Document(s ) Urea 17.8 [facility] nitrogen/Cre Hospital atinine [Mass Ratio] in Serum or Plasma ID Date Data Source [id number] 09/26/2019 06:55:00 AM EDT [facility] Name Value Range Interpretation Description Data Sup porting Code Source(s) Document(s ) Creatinine 0.9 mg/dL [facility] [Mass/volume] Hospital in Serum or Plasma ID Date Data Source [id number] 09/26/2019 06:55:00 AM EDT [facility] Name Value Range Interpretation Description Data Sup porting Code Source(s) Document(s ) Urea 16 mg/dL [facility] nitrogen [facility] [Mass/volume ] in Serum or Plasma ID Date Data Source [id number] 09/26/2019 06:55:00 AM EDT [facility] Name Value Range Interpretation Code Description Data Nelda rce(s) Supporting Document(s ) Anion gap in 11 [facility] Serum or [facility] Plasma ID Date Data Source [id number] 09/26/2019 06:55:00 AM EDT [facility] Value Range Interpretation Description Data Sup porting Code Source(s) Document(s ) Carbon 27 mmol/L [facility] dioxide, Hospital total [Moles/volu me] in Serum or Plasma ID Date Data Source [id number] 09/26/2019 06:55:00 AM EDT [facility] Name Value Range Interpretation Description Data Sup porting Code Source(s) Document(s ) Chloride 103 [facility] [Moles/volum mmol/L Hospital e] in Serum or Plasma ID Date Data Source [id number] 09/26/2019 06:55:00 AM EDT [facility] Name Value Range Interpretation Description Data Sup porting Code Source(s) Document(s ) Potassium 3.8 [facility] [Moles/volume mmol/L Hospital ] in Serum or Plasma ID Date Data Source [id number] 09/26/2019 06:55:00 AM EDT [facility] Name Value Range Interpretation Description Data Sup porting Code Source(s) Document(s ) Sodium 137 mmol/L [facility] [Moles/volu Hospital me] in Serum or Plasma ID Date Data Source [id number] 09/26/2019 06:55:00 AM EDT [facility] Value Range Interpretation Description Data Sup porting Code Source(s) Document(s ) Glucose 94 mg/dL [facility] [Mass/volume Hospital ] in Serum or Plasma ID Date Data Source [id number] 09/26/2019 [facility] Range Interpretation Code Description Data Supporting Source(s) Document(s ) NUCLEATED RBCS 0.0 % [facility] (AUTO Hospital DIFF%)DIS ID Date Data Source [id number] 09/26/2019 [facility]:55[facility] Value Range Interpretation Description Data Sup porting Code Source(s) Document(s ) Differential AUTOMATED [facility] cell count [facility] method - Blood ID Date Data Source [id number] 09/26/2019 06:55:00 AM EDT [facility] Value Range Interpretation Description Data Sup porting Code Source(s) Document(s ) Immature 0.06 [facility] granulocytes 10*3/uL Hospital [#/volume] in Blood by Automated count ID Date Data Source [id number] 09/26/2019 [facility]:55[facility] Value Range Interpretation Description Data Sup porting Code Source(s) Document(s ) Basophils 0.03 [facility] [#/volume] in 10*3/uL Hospital Blood by Automated count ID Date Data Source [id number] 09/26/2019 06:55[facility] Name Value Range Interpretation Description Data Sup porting Code Source(s) Document(s ) Eosinophils 0.21 [facility] [#/volume] in 10*3/uL Hospital Blood by Automated count ID Date Data Source [id number] 09/26/2019 06:55[facility] Value Range Interpretation Description Data Sup porting Code Source(s) Document(s ) Monocytes 0.83 [facility] [#/volume] in 10*3/uL Hospital Blood by Automated count ID Date Data Source [id number] 09/26/2019 06:55:00 AM EDT [facility] Name Value Range Interpretation Description Data Sup porting Code Source(s) Document(s ) Lymphocytes 1.57 [facility] [#/volume] in 10*3/uL Hospital Blood by Automated count ID Date Data Source [id number] 09/26/2019 06:55:00 AM EDT [facility] Value Range Interpretation Description Data Sup porting Code Source(s) Document(s ) Neutrophils 4.47 [facility] [#/volume] in 10*3/uL [facility] Blood by Automated count ID Date Data Source [id number] 09/26/2019 06:55:00 AM EDT [facility] Value Range Interpretation Description Data Sup porting Code Source(s) Document(s ) Nucleated 0.0 % [facility] erythrocytes/10 Hospital 0 leukocytes [Ratio] in Blood by Automated count ID Date Data Source [id number] 09/26/2019 06:55:00 AM EDT [facility] Value Range Interpretation Description Data Sup porting Code Source(s) Document(s ) Immature 0.8 % [facility] granulocytes/10 Hospital 0 leukocytes in Blood by Automated count ID Date Data Source [id number] 09/26/2019 06:55:00 AM EDT [facility] Value Range Interpretation Description Data Sup porting Code Source(s) Document(s ) Basophils/100 0.4 % [facility] leukocytes in Hospital Blood by Automated count ID Date Data Source [id number] 09/26/2019 06:55:00 AM EDT [facility] Value Range Interpretation Description Data Sup porting Code Source(s) Document(s ) Eosinophils/100 2.9 % [facility] leukocytes in Hospital Blood by Automated count ID Date Data Source [id number] 09/26/2019 06:55:00 AM EDT [facility] Name Value Range Interpretation Description Data Sup porting Code Source(s) Document(s ) Monocytes/100 11.6 % [facility] leukocytes in Hospital Blood by Automated count ID Date Data Source [id number] 09/26/2019 06:55:00 AM EDT [facility] Value Range Interpretation Description Data Sup porting Code Source(s) Document(s ) Lymphocytes/10 21.9 % [facility] 0 leukocytes Hospital in Blood by Automated count ID Date Data Source [id number] 09/26/2019 06:55:00 AM EDT [facility] Value Range Interpretation Description Data Sup porting Code Source(s) Document(s ) Neutrophils/10 62.4 % [facility] 0 leukocytes Hospital in Blood by Automated count ID Date Data Source [id number] 09/26/2019 06:55:00 AM EDT [facility] Value Range Interpretation Description Data Sup porting Code Source(s) Document(s ) Platelet mean 10.1 fL [facility] volume [facility] [Entitic volume] in Blood by Automated count ID Date Data Source [id number] 09/26/2019 06:55:00 AM EDT [facility] Value Range Interpretation Description Data Sup porting Code Source(s) Document(s ) Platelets 243 [facility] [#/volume] in 10*3/uL Hospital Blood by Automated count ID Date Data Source [id number] 09/26/2019 06:55:00 AM EDT [facility] Value Range Interpretation Description Data Sup porting Code Source(s) Document(s ) Erythrocyte 12.7 % [facility] distribution [facility] width [Ratio] by Automated count ID Date Data Source [id number] 09/26/2019 06:55:00 AM EDT [facility] Value Range Interpretation Description Data Sup porting Code Source(s) Document(s ) Erythrocyte mean 33.5 [facility] corpuscular g/dL Hospital hemoglobin concentration [Mass/volume] by Automated count ID Date Data Source [id number] 09/26/2019 06:55:00 AM EDT [facility] Value Range Interpretation Description Data Sup porting Code Source(s) Document(s ) Erythrocyte 30.0 pg [facility] corpuscular hemoglobin [Entitic mass] by Automated count ID Date Data Source [id number] 09/26/2019 [facility] Interpretation Description Data Sup porting Code Source(s) Document(s ) Erythrocyte 89.5 fL [facility] corpuscular volume [Entitic volume] by Automated count ID Date Data Source [id number] 09/26/2019 06:55:[address] [facility] Value Range Interpretation Description Data Sup porting Code Source(s) Document(s ) Hematocrit 38.5 % [facility] [Volume Hospital Fraction] of Blood by Automated count ID Date Data Source [id number] 09/26/2019 06:55[facility] Value Range Interpretation Description Data Sup porting Code Source(s) Document(s ) Hemoglobin 12.9 g/dL [facility] [Mass/volume] Hospital in Blood ID Date Data Source [id number] 09/26/2019 06:55[facility] Value Range Interpretation Description Data Sup porting Code Source(s) Document(s ) Erythrocytes 4.30 [facility] [#/volume] in 10*6/uL Hospital Blood by Automated count ID Date Data Source [id number] 09/26/2019 06:55:00 AM EDT [facility] Name Value Range Interpretation Description Data Sup porting Code Source(s) Document(s ) Leukocytes 7.2 [facility] [#/volume] in 10*3/uL Hospital Blood by Automated count ID Date Data Source [id number] 09/25/2019 07:01:00 AM EDT [facility] Name Value Range Interpretation Description Data Sup porting Code Source(s) Document(s ) Phosphate 3.7 mg/dL [facility] [Mass/volume[facility] in Serum or Plasma ID Date Data Source [id number] 09/25/2019 07:01:00 AM EDT [facility] Name Value Range Interpretation Description Data Sup porting Code Source(s) Document(s ) Bilirubin.d 0.1 mg/dL [facility] [Mass/volum e] in Serum or Plasma ID Date Data Source [id number] 09/25/2019 07:01:00 AM EDT [facility] Name Value Range Interpretation Description Data Sup porting Code Source(s) Document(s ) Phosphate 3.7 mg/dL [facility]Mass[facility]volume[facility] in Serum or Plasma ID Date Data Source [id number] 09/25/2019 07:01:00 AM EDT [facility] Name Value Range Interpretation Description Data Sup porting Code Source(s) Document(s ) Magnesium 2.2 mg/dL [facility]Mass/volume[facility] in Serum or Plasma ID Date Data Source [id number] 09/25/2019 [facility] Name Value Range Interpretation Code Description Data Supporting Source(s) Document(s ) Creatine 44 U/L [facility] [Enzymatic activity/volu me] in Serum or Plasma ID Date Data Source [id number] 09/25/2019 07:01:00 AM EDT [facility] Name Value Range Interpretation Description Data Sup porting Code Source(s) Document(s ) Bilirubin.d 0.1 mg/dL [facility] [Mass/volum e] in Serum or Plasma ID Date Data Source [id number] 09/24/2019 10:17:00 PM EDT [facility] REFERENCE VALUE------ <1.0 (Negative)Test Performed by:[facility] [place] [id number] Director: Kam Oliveira M.D. Ph.D.; CLIA# [id number] Name Value Range Interpretation Description Data Sup porting Code Source(s) Document(s ) AUTOANTIBODIES TO <0.2 [facility], S Hospital ID Date Data Source [id number] 09/24/2019 10:17:[facility] REFERENCE VALUE------ <1.0 (Negative) Name Value Range Interpretation Description Data Sup porting Code Source(s) Document(s ) AUTOANTIBODIES TO <0.2 [facility] SS-A/RO Hospital ID Date Data Source [id number] 09/24/2019 10:17:00 [facility] REFERENCE VALUE------ <1.0 (Negative) Name Value Range Interpretation Description Data Sup porting Code Source(s) Document(s ) AUTOANTIBODIES TO <0.2 [facility] SS-B/LA Hospital ID Date Data Source [id number] 09/24/2019 10:17:00 PM EDT [facility] REFERENCE VALUE------ <1.0 (Negative) Name Value Range Interpretation Description Data Sup porting Code Source(s) Document(s ) AUTOANTIBODIES TO <0.2 [facility] Hospital ID Date Data Source [id number] 09/24/2019 10:17:00 PM EDT [facility] REFERENCE VALUE------ <1.0 (Negative) Name Value Range Interpretation Description Data Sup porting Code Source(s) Document(s ) AUTOANTIBODIES TO <0.2 [facility] U1RNP Hospital ID Date Data Source [id number] 09/24/2019 10:17:00 PM EDT [facility] REFERENCE VALUE------ <1.0 (Negative)Test Performed by:[address] [id number] Director: Kam Oliveira M.D. Ph.D.; CLIA# [id number] Name Value Range Interpretation Description Data Sup porting Code Source(s) Document(s ) AUTOANTIBODIES TO <0.2 [facility] Hospital ID Date Data Source [id number] 09/24/2019 10:17:00 PM EDT [facility] REFERENCE VALUE------ <1.0 (Negative) Name Value Range Interpretation Description Data Sup porting Code Source(s) Document(s ) AUTOANTIBODIES TO <0.2 [facility] Hospital ID Date Data Source [id number] 09/24/2019 10:17:00 PM EDT [facility] Reference Range: <770 U/ml Negativ e 770-950 U/mL Low positive >950 U/mL PositiveA positive IgM antibody result is consistent withrecent infection. However, a negative result does notnecessarily ru le out recent infection as someindividuals may not mount another IgM response, ifpr eviously infected. This test was performed at: [facility] [address] Name Value Range Interpretation Code Description Data Nelda rce(s) Supporting Document(s ) M.PNEUMONI 53 [facility] AE AB [facility] (IGM), EIA ID Date Data Source [id number] 09/24/2019 10:17:[facility]Test performed by:[facility] [place], [place] [address]Aasfeqllbirdie Grace M.D. Name Value Range Interpretation Description Data Sup porting Code Source(s) Document(s ) INTERPRETATION Negative [facility] ID Date Data Source [id number] 09/24/2019 10:17:00 PM EDT [facility] Name Value Range Interpretation Description Data Sup porting Code Source(s) Document(s ) Sjogrens <1.0 [facility] syndrome-B Hospital extractable nuclear Ab [Units/volume] in Serum ID Date Data Source [id number] 09/24/2019 10:17:00 PM [facility] Name Value Range Interpretation Code Description Data Nelda rce(s) Supporting Document(s ) INTERPRET Negative [facility] ATION5 [facility] ID Date Data Source [id number] 09/24/2019 10:17:00 PM [facility] Name Value Range Interpretation Description Data Sup porting Code Source(s) Document(s ) Sjogrens <1.0 [facility] syndrome-A [facility] extractable nuclear Ab [Units/volume] in Serum ID Date Data Source [id number] 09/24/2019 10:17:00 PM [facility]Test performed by:[facility] [place] [address]JhexiwivHector Grace M.D. Name Value Range Interpretation Description Data Sup porting Code Source(s) Document(s ) Angiotensin 45 U/L [facility] enzyme [Enzymatic activity/volume ] in Serum or Plasma ID Date Data Source [id number] 09/24/2019 10:17:00 PM [facility] Name Value Range Interpretation Code Description Data Nelda rce(s) Supporting Document(s ) IgE 19.5 [facility] [IU]/mL Hospital ID Date Data Source [id number] 09/24/2019 10:17:00 PM [facility] Name Value Range Interpretation Description Data Sup porting Code Source(s) Document(s ) Rheumatoid < 10.0 [facility] factor [IU]/mL Hospital [Units/volume] in Serum or Plasma ID Date Data Source [id number] 09/24/2019 10:17:00 PM [facility] Name Value Range Interpretation Description Data Sup porting Code Source(s) Document(s ) CIARA IFA NEGATIVE [facility] W/RFLX Hospital PATTERN & TITER ID Date Data Source [id number] 09/24/2019 10:17:00 PM [facility] Name Value Range Interpretation Description Data Sup porting Code Source(s) Document(s ) Nuclear Ab EQUIV, IFA [facility] [Presence] in REFLEXED Hospital Serum by Immunoassay ID Date Data Source [id number] 09/24/2019 10:17:00 PM [facility] Name Value Range Interpretation Description Data Sup porting Code Source(s) Document(s ) Erythrocyte 86 mm/h [facility] rate by Westergren method ID Date Data Source [id number] 09/24/2019 10:17:00 PM EDT [facility] .Test performed by:[facility] [place] [address]CxdgbkvxHector Grace M.D. Name Value Range Interpretation Description Data Sup porting Code Source(s) Document(s ) INTERPRETATION Negative [facility] ID Date Data Source [id number] 09/24/2019 10:17:00 PM EDT [facility] Name Value Range Interpretation Description Data Sup porting Code Source(s) Document(s ) Sjogrens <1.0 [facility] syndrome-B [facility] extractable nuclear Ab [Units/volume] in Serum ID Date Data Source [id number] 09/24/2019 [facility] Interpretation Code Description Data Nelda rce(s) Supporting Document(s ) INTERPRET Negative [facility] ATION5 Hospital ID Date Data Source [id number] 09/24/2019 10:17:00 PM EDT [facility] Name Value Range Interpretation Description Data Sup porting Code Source(s) Document(s ) Sjogrens <1.0 [facility] syndrome-A [facility] extractable nuclear Ab [Units/volume] in Serum ID Date Data Source [id number] 09/24/2019 10:17:00 PM EDT [facility] Name Value Range Interpretation Code Description Data Nelda rce(s) Supporting Document(s ) IgE 19.5 [facility] [IU]/mL Hospital ID Date Data Source [id number] 09/24/2019 10:17:00 PM EDT [facility] Value Range Interpretation Description Data Sup porting Code Source(s) Document(s ) Rheumatoid < 10.0 [facility] factor [IU]/mL Hospital [Units/volume] in Serum or Plasma ID Date Data Source [id number] 09/24/2019 10:17:00 PM EDT [facility] Value Range Interpretation Description Data Sup porting Code Source(s) Document(s ) CIARA IFA NEGATIVE [facility] W/RFLX [facility] PATTERN & TITER ID Date Data Source [id number] 09/24/2019 10:17:[facility] Value Range Interpretation Description Data Sup porting Code Source(s) Document(s ) Nuclear Ab EQUIV, IFA [facility] [Presence] in REFLEXED Hospital Serum by Immunoassay ID Date Data Source [id number] 09/24/2019 10:17:[facility] Value Range Interpretation Description Data Sup porting Code Source(s) Document(s ) Erythrocyte 86 mm/h [facility] sedimentation [facility] rate by Westergren method ID Date Data Source [id number] 09/24/2019 01:08:00 PM EDT [facility] Name Value Range Interpretation Description Data Sup porting Code Source(s) Document(s ) C reactive 49.3 mg/L [facility] protein [facility] [Mass/volume ] in Serum or Plasma ID Date Data Source [id number] 09/24/2019 01:08:[facility] Value Range Interpretation Description Data Sup porting Code Source(s) Document(s ) Variant 1 % [facility] lymphocytes/100 Hospital leukocytes in Blood by Manual count ID Date Data Source [id number] 09/24/2019 01:08:00 PM [facility] Name Value Range Interpretation Description Data Sup porting Code Source(s) Document(s ) C reactive 49.3 mg/L [facility] protein [facility] [Mass/volume ] in Serum or Plasma ID Date Data Source [id number] 09/24/2019 01:08:00 PM EDT [facility] Name Value Range Interpretation Description Data Sup porting Code Source(s) Document(s ) Procalcitonin 1.4 [facility] [Mass/volume] in ng/mL Hospital Serum or Plasma ID Date Data Source [id number] 09/24/2019 01:08:00 PM [facility] Name Value Range Interpretation Description Data Sup porting Code Source(s) Document(s ) Lactate 0.6 [facility] [Moles/volum mmol/L Hospital e] in Serum or Plasma ID Date Data Source [id number] 09/24/2019 01:08:00 PM [facility] Name Value Range Interpretation Description Data Sup porting Code Source(s) Document(s ) Lactate 262 U/L [facility] dehydrogenase [facility] [Enzymatic activity/volume] in Serum or Plasma ID Date Data Source [id number] 09/24/2019 01:08:00 PM [facility] A VALUE LESS THAN 500 NG/ML FEU IN PATIE NTS UNDER AGE 50, WHEN COMBINED WITH A CLINICAL ASSESSMENT OF LOW PRETEST PROBA BILITY, HAS BEEN SHOWN TO HAVE A HIGH NEGATIVE PREDICTIVE VALUE FOR DVT OR PE. USING AGE-ADJUSTED THRESHOLDS (AGE X 10) IN PATIENTS OLDER THAN 50 YEARS IS RECOMMEN DED FOR DETERMINING WHETHER IMAGING IS WARRANTED.[facility] IS NOT A SPECIFIC ELBA ER FOR DVT OR PE AND CAN BE ELEVATED IN THE ELDERLY WELL IN THE FOLLOWING COND ITIONS: , CANCER, INFECTION, DIC, TRAUMA AND INFLAMMATION. Name Value Range Interpretation Description Data Sup porting Code Source(s) Document(s ) Fibrin 319 ng/mL [facility] [Mass/volume ] in Platelet poor plasma ID Date Data Source [id number] 09/24/2019 01:08:00 PM EDT [facility] Value Range Interpretation Code Description Data Nelda rce(s) Supporting Document(s ) Cells 100 [facility] Hospital Total [#] in Blood ID Date Data Source [id number] 09/24/2019 01:08:00 PM EDT [facility] Value Range Interpretation Code Description Data Supporting Source(s) Document(s ) PLATELET NORMAL [facility] COMMENT Hospital ID Date Data Source [id number] 09/24/2019 01:08:00 PM EDT [facility] Value Range Interpretation Code Description Data Nelda rce(s) Supporting Document(s ) RBC COMMENT NORMAL [facility] ID Date Data Source [id number] 09/24/2019 01:08:00 PM EDT [facility] Name Value Range Interpretation Description Data Sup porting Code Source(s) Document(s ) Eosinophils 0.19 [facility] [#/volume] in 10*3/uL Hospital Blood by Manual count ID Date Data Source [id number] 09/24/2019 01:08:00 PM EDT [facility] Value Range Interpretation Description Data Sup porting Code Source(s) Document(s ) Monocytes 0.50 [facility] [#/volume] in 10*3/uL Hospital Blood by Manual count ID Date Data Source [id number] 09/24/2019 [facility]:08[facility] Value Range Interpretation Description Data Sup porting Code Source(s) Document(s ) Lymphocytes 0.62 [facility] [#/volume] in 10*3/uL Hospital Blood by Manual count ID Date Data Source [id number] 09/24/2019 01:08:00 PM EDT [facility] Value Range Interpretation Description Data Sup porting Code Source(s) Document(s ) Neutrophils 4.90 [facility] [#/volume] in 10*3/uL Hospital Blood by Manual count ID Date Data Source [id number] 09/24/2019 01:08:00 PM EDT [facility] Value Range Interpretation Description Data Sup porting Code Source(s) Document(s ) Eosinophils/100 3 % [facility] leukocytes in Hospital Blood by Manual count ID Date Data Source [id number] 09/24/2019 01:08:00 PM EDT [facility] Value Range Interpretation Description Data Sup porting Code Source(s) Document(s ) Monocytes/100 8 % [facility] leukocytes in Hospital Blood by Manual count ID Date Data Source [id number] 09/24/2019 01:08:00 PM EDT [facility] Value Range Interpretation Description Data Sup porting Code Source(s) Document(s ) Variant 1 % [facility] lymphocytes/100 Hospital leukocytes in Blood by Manual count ID Date Data Source [id number] 09/24/2019 01:08:00 PM EDT [facility] Value Range Interpretation Description Data Sup porting Code Source(s) Document(s ) Lymphocytes/100 9 % [facility] leukocytes in Hospital Blood by Manual count ID Date Data Source [id number] 09/24/2019 01:08:00 PM EDT [facility] Value Range Interpretation Description Data Sup porting Code Source(s) Document(s ) Neutrophils/100 79 % [facility] leukocytes in Hospital Blood by Manual count ID Date Data Source [id number] 09/24/2019 12:59:00 PM EDT [facility] Value Range Interpretation Description Data Sup porting Code Source(s) Document(s ) Bacteria No growth [facility] identified in Hospital Blood by Culture ID Date Data Source [id number] 09/24/2019 12:59:00 PM [facility] Name Value Range Interpretation Description Data Sup porting Code Source(s) Document(s ) Bacteria No growth [facility] identified in [facility] Blood by Culture ID Date Data Source [id number] 09/24/2019 12:56:[facility] Value Range Interpretation Description Data Sup porting Code Source(s) Document(s ) Bacteria OCCASIONAL [facility] [#/area] in Hospital Urine sediment by Microscopy high power field ID Date Data Source [id number] 09/24/2019 12:56:[address] [facility] Value Range Interpretation Description Data Sup porting Code Source(s) Document(s ) Bacteria OCCASIONAL [facility] [#/area] in Hospital Urine sediment by Microscopy high power field ID Date Data Source [id number] 09/24/2019 12:56:00 PM [facility] Name Value Range Interpretation Description Data Sup porting Code Source(s) Document(s ) Erythrocytes 0-3 [facility] [#/area] in /[HPF] Hospital Urine sediment by Microscopy high power field ID Date Data Source [id number] 09/24/2019 12:56:[address] [facility] Value Range Interpretation Description Data Sup porting Code Source(s) Document(s ) Leukocytes 0-3 [facility] [#/area] in /[HPF] Hospital Urine sediment by Microscopy high power field ID Date Data Source [id number] 09/24/2019 12:56:[address] [facility] Value Range Interpretation Description Data Sup porting Code Source(s) Document(s ) Leukocyte NEGATIVE [facility] esterase [facility] [Presence] in Urine by Test strip ID Date Data Source [id number] 09/24/2019 12:56:00 PM EDT [facility] Name Value Range Interpretation Description Data Sup porting Code Source(s) Document(s ) URINE NEGATIVE [facility] NITRITES Hospital ID Date Data Source [id number] 09/24/2019 12:56:00 PM EDT [facility] Name Value Range Interpretation Description Data Sup porting Code Source(s) Document(s ) Erythrocytes NEGATIVE [facility] [#/volume] in Hospital Urine by Test strip ID Date Data Source [id number] 09/24/2019 12:56:00 PM EDT [facility] Value Range Interpretation Code Description Data Nelda rce(s) Supporting Document(s ) Bilirubin. NEGATIVE [facility] total Hospital [Presence] in Urine by Test strip ID Date Data Source [id number] 09/24/2019 12:56:00 PM EDT [facility] Name Value Range Interpretation Description Data Sup porting Code Source(s) Document(s ) Urobilinogen 0.2 [facility] [Units/volume] mg/dL Hospital in Urine by Test strip ID Date Data Source [id number] 09/24/2019 12:56:00 PM EDT [facility] Name Value Range Interpretation Description Data Sup porting Code Source(s) Document(s ) Ketones NEGATIVE [facility] [Mass/volume Hospital ] in Urine by Test strip ID Date Data Source [id number] 09/24/2019 12:56:00 PM EDT [facility] Name Value Range Interpretation Description Data Sup porting Code Source(s) Document(s ) Glucose NEGATIVE [facility] [Mass/volume Hospital ] in Urine by Test strip ID Date Data Source [id number] 09/24/2019 12:56:00 PM EDT [facility] Name Value Range Interpretation Code Description Data Nelda rce(s) Supporting Document(s ) Protein TRACE [facility] [Presence] Hospital in Urine by Test strip ID Date Data Source [id number] 09/24/2019 12:56:00 PM EDT [facility] Name Value Range Interpretation Code Description Data Nelda rce(s) Supporting Document(s ) pH of Urine 6.5 [facility] by Test Hospital strip ID Date Data Source [id number] 09/24/2019 12:56:00 PM EDT [facility] Name Value Range Interpretation Code Description Data Supporting Source(s) Document(s ) Specific 1.018 [facility] gravity of Hospital Urine by Test strip ID Date Data Source [id number] 09/24/2019 12:56:00 PM EDT [facility] Name Value Range Interpretation Description Data Sup porting Code Source(s) Document(s ) Clarity in Urine CLEAR [facility] by Refract[facility] automated ID Date Data Source [id number] 09/24/2019 12:56:00 PM EDT [facility] Name Value Range Interpretation Code Description Data Nelda rce(s) Supporting Document(s ) Color of YELLOW [facility] Urine Hospital ID Date Data Source [id number] 09/20/2019 10:59:00 AM EDT [facility] Name Value Range Interpretation Description Data Sup porting Code Source(s) Document(s ) 2018 Novel [facility] Coronavirus RNA Interpretation Unspecified Specimen Qualitative RENE Probe Detection This lab was ordered by [facility] and reported by [facility]. ID Date Data Source [id number] 09/04/2019 06:37:00 AM EDT [facility] Name Value Range Interpretation Description Data Sup porting Code Source(s) Document(s ) 2018 Novel [facility] Coronavirus RNA Interpretation Unspecified Specimen Qualitative RENE Probe Detection This lab was ordered by [place] [address] and reported by [facility]. Procedure Social History Code Duration Value Status Description Data Source(s ) Smoking Unknown if ever completed Unknown if ever [facility] Smoking Unknown if ever completed Unknown if ever [facility] Vital Signs ID Date Data Source UNK Name Value Range Interpretation Code Description Data Source(s) Diastolic blood 82 mm[Hg] 82 mm[Hg] [facility] pressure Hospital Systolic blood 144 mm[Hg] 144 mm[Hg] [facility] pressure [facility] Respiratory rate 18 /min 18 /min [facility] Heart rate 66 /min 66 /min [facility] Body temperature 36.93861 36.63750 [facility] Body temperature 97.8 [degF] 97.8 [degF] [facility] Body mass index 25.0 kg/m2 25.0 kg/m2 [facility] (BMI) [Ratio] Hospital Body weight 178.38 178.38 [lb_av] [facility] [lb_av] Hospital Diastolic blood 90 mm[Hg] 90 mm[Hg] [facility] Systolic blood 150 mm[Hg] 150 mm[Hg] [facility] pressure [facility] Respiratory rate 20 /min 20 /min [facility] Heart rate 79 /min 79 /min [facility] Body temperature 37.95591 37.91027 [facility] Body temperature 99.0 [degF] 99.0 [degF] [facility] Body mass index 25.0 kg/m2 25.0 kg/m2 [facility] (BMI) [Ratio] Hospital Body weight 180.38 180.38 [lb_av] [facility] [lb_av] Hospital
[2019-12-17 01:00] VITALS: TEMP 98.1; BMI 25.4
--- NOTE | 2019-12-17 01:02 | PDOC ---
History of Present Illness - General Chief Complaint: Blood Pressure Problem Stated Complaint: high blood pressure, lightheaded, tired Time Seen by Provider: 12/17/19 00:56 - History of Present Illness Initial Comments: 12/17/19 01:23 69-year-old man with a history of hypertension, BPH, anxiety presents with a few day history of lightheadedness and fatigue; tonight, symptoms were somewhat more pronounced and he measured his blood pressure. When he found that it was much higher than usual (170/111) he took an additional dose of atenolol (about an hour prior to arrival in ER) He denies facial droop, difficulty with word re call, extremity weakness, vertigo. He has had no chest pain, diaphoresis, nausea, shortness of breath, palpitations. No recent lower extremity edema or pain. He states that he has been on the same blood pressure medication for "about 15 years". No history of TX or exertional angina. He had ablation procedure for A. fib approximately 10 years ago. No recent vomiting/diarrhea/fever. The patient was hospitalized in late August of this year for pneumonia (etiology unclear but thought to be viral). He has not had any respiratory symptoms in recent weeks. No known recent Covid -19 exposure CAD risk factors: Positive for hypertension; negative for DM/HLD/family history/smoking Medications as noted below No known allergies Non-smoker; no daily alcohol or other recreational drug use Past History - Medical History Allergies/Adverse Reactions: Allergies Allergy/AdvReac Type Severity Reaction Status Date / Time No Known Allergies Allergy Verified 12/17/19 00:54 Home Medications: Ambulatory Orders Amlodipine Besylate [Norvasc -] 5 mg PO DAILY 11/17/16 Aspirin [Ecotrin] 81 mg PO DAILY 11/17/16 Atenolol [Tenormin -] 50 mg PO DAILY 11/17/16 Duloxetine HCl [Cymbalta] 60 mg PO DAILY 11/17/16 traZODone HCL [Trazodone HCl] 100 mg PO HS 11/17/16 Cholecalciferol (Vitamin D3) [Vitamin D3 -] 400 unit PO DAILY 12/17/19 Tamsulosin HCl [Flomax] 0.4 mg PO DAILY 12/17/19 Cardiac Disorders: Yes (IRREGULAR HEARTBEAT) COPD: No GI Disorders: Yes (COLITIS) HTN: Yes Psychiatric Problems: Yes - Surgical History Cardiac Surgery: Yes (ABLATION) - Psycho-Social/Smoking History Smoking History: Never smoked Have you smoked in the past 12 months: No Information on smoking cessation initiated: No - Substance Abuse Hx (Audit-C & DAST Scrn) How often the patient has a drink containing alcohol: Never Score: In Men: 4 or > Positive; In Women: 3 or > Positive: 0 Screen Result (Pos requires Nsg. Audit-10AR): Negative In the last yr the pt used illegal drug/Rx for NonMed reason: No Score: Yes response is considered Positive: 0 Screen Result (Positive result requires Nsg. DAST-10): Negative Review of Systems - Review of Systems Able to Perform ROS?: Yes Comments:: 12 point review of systems is negative except for what is noted in the history of present illness *Physical Exam - Vital Signs Last Vital Signs Temp Pulse Resp BP Pulse Ox 98.1 F 72 18 152/91 98 12/17/19 00:57 12/17/19 02:15 12/17/19 00:57 12/17/19 02:15 12/17/19 02:15 - Physical Exam GENERAL: Adult male, alert and oriented x3, somewhat anxious but in no acute distress BP 170/94 HR 76/min HEAD: Normal with no signs of trauma. EYES: PERRLA, EOMI, sclera anicteric, conjunctiva clear. ENT: Ears normal, nares patent, oropharynx clear without exudates. Moist mucous membranes. NECK: Normal range of motion, supple without lymphadenopathy, JVD, or masses. LUNGS: Breath sounds equal, clear to auscultation bilaterally. No wheezes, and no crackles. HEART:Regular rate and rhythm, normal S1 and S2 without murmur, rub or gallop. ABDOMEN:.normal bowel sounds No guarding,tenderness or rebound.No masses No distention. EXTREMITIES: Normal range of motion, no edema. No clubbing or cyanosis. No erythema, or tenderness. NEUROLOGICAL: Cranial nerves II through XII grossly intact. Normal speech. No focal neurological deficits. SKIN: Warm, Dry, normal turgor, no rashes or lesions noted. Twelve-lead electrocardiogram is performed and interpreted by me: Sinus rhythm at 77 bpm; there is first-degree AV block. Right bundle branch block is present. No acute ST or T wave abnormalities. No axis or waveform abnormalities seen. No acute cardiac arrhythmias present Heart Score/ECG Review - History History: Slightly suspicious - Electrocardiogram EKG: Normal - Age Age: >/= 65 - Risk Factors Risk Factors Heart Score: Yes Hx Hypertension Based on the list above the patient has:: 1-2 risk factors - Troponin Troponin: </= normal limit - Score Heart Score - Total: 3 ED Treatment Course - LABORATORY CBC & Chemistry Diagram: 12/17/19 01:11 12/17/19 01:11 - ADDITIONAL ORDERS Additional order review: Laboratory Results 12/17/19 01:11 Sodium 134 L Potassium 3.5 Chloride 97 L Carbon Dioxide 31 Anion Gap 6 L BUN 15.5 Creatinine 1.1 Est GFR (CKD-EPI)AfAm 78.97 Est GFR (CKD-EPI)NonAf 68.13 Random Glucose 130 H Calcium 9.7 Total Bilirubin 0.4 AST 17 ALT 36 Alkaline Phosphatase 65 Creatine Kinase 81 Troponin I < 0.02 Total Protein 8.2 Albumin 4.0 12/17/19 01:11 RBC 4.53 MCV 90.3 MCHC 34.4 RDW 14.4 MPV 8.7 Neutrophils % 61.2 Lymphocytes % 28.6 Monocytes % 7.9 Eosinophils % 1.9 Basophils % 0.4 Medical Decision Making - Medical Decision Making As noted above, this 69-year-old man with a history of hypertension presents with lightheadedness/fatigue for the last few days and elevated blood pressure on home monitor. Exam as noted. EKG interpreted as above without signs of acute ischemia/infarct CBC/chemistry profile/troponin sent. Laboratory evaluation is essentially normal with no elevation of the troponin Repeat blood pressure: 152/91 Patient will be discharged with recommendations to continue his medications as prescribed. He should contact his PMD in the a.m. to discuss events of the last 24 to 48 hours and his visit to the ER. He should follow-up as arranged. If he develops chest pain, shortness of breath, palpitations or severe and persistent lightheadedness, he should return to the ER Discharge - Discharge Information Problems reviewed: Yes Clinical Impression/Diagnosis: Hypertension Qualifiers: Hypertension type: unspecified Qualified Code(s): I10 - Essential (primary) hypertension Condition: Stable Disposition: HOME - Follow up/Referral Referrals: Dong Diane [Primary Care Provider] - Call tomorrow - Patient Discharge Instructions Patient Printed Discharge Instructions: DI for High Blood Pressure Additional Instructions: Continue medications as previously prescribed Contact your physician in AM and discuss tonight's visit Follow-up with your physician as arranged Return to ER if you have chest pain, shortness of breath, palpitations, severe and persistent lightheadedness - Post Discharge Activity
[2019-12-17 02:00] LABS: BASO % 0.4 % (0-2.0); EOS % 1.9 % (0-4.5); HEMATOCRIT 40.9 % (35.4-49); HEMOGLOBIN 14.1 GM/dL (11.7-16.9); LYMPH % 28.6 % (8-40); MCHC 34.4 g/dl (32.0-35.9); MEAN CELL VOLUME 90.3 fl (80-96); MEAN PLT VOLUME 8.7 fl (7.5-11.1); MONO % 7.9 % (3.8-10.2); NEUT % 61.2 % (42.8-82.8); PLATELET COUNT 281 K/MM3 (134-434); RBC 4.53 M/mm3 (4.00-5.60); RDW 14.4 % (11.9-15.9); WHITE BLOOD COUNT 8.1 K/mm3 (4.0-10.0)
[2019-12-17 02:16] VITALS: BP 152/91; PULSE 72
[2019-12-17 02:27] LABS: ALK PHOS 65 U/L (45-117); BILIRUBIN,TOTAL 0.4 mg/dL (0.2-1); CALCIUM 9.7 mg/dL (8.5-10.1); CO2 31 mmol/L (21-32); CREATININE 1.1 mg/dL (0.55-1.3); GLUCOSE,RANDOM 130 mg/dL (74-106); POTASSIUM 3.5 mmol/L (3.5-5.1); SGOT/AST 17 U/L (15-37); SGPT/ALT 36 U/L (13-61); SODIUM 134 mmol/L (136-145); TOT PROT 8.2 g/dl (6.4-8.2)
[2019-12-17 02:29] LABS: ANION GAP 6 MMOL/L (8-16); BLOOD UREA NITROGEN 15.5 mg/dL (7-18); CHLORIDE 97 mmol/L (98-107)
--- NOTE | 2019-12-17 09:43 | EKG ---
Test Reason : Blood Pressure : / mmHG Vent. Rate : 077 BPM Atrial Rate : 077 BPM P-R Int : 224 ms QRS Dur : 146 ms QT Int : 416 ms P-R-T Axes : 053 046 017 degrees QTc Int : 470 ms SINUS RHYTHM WITH 1ST DEGREE A-V BLOCK RIGHT BUNDLE BRANCH BLOCK ABNORMAL ECG NO PREVIOUS ECGS AVAILABLE Confirmed by Mirza Blackwell ([id number]) on 12/17/2019 9:43:25 AM Referred By: MARIE BROWN Confirmed By:Mirza Blackwell
== END 2019-12-17 02:40 | disposition home or self-care (01) ==
LOC: FER 00:52
DX: I10 Essential (primary) hypertension (principal)
CPT/HCPCS: 36415; 80053; 82550; 84484; 85025; 93005; 99284-25

== ENCOUNTER 2020-02-13 23:01 | Emergency (ER) | payer OTHER, MEDICARE ==
[2020-02-13 23:12] VITALS: PULSE 67; TEMP 98.7; BMI 25.4
[2020-02-13] MEDS ORDERED: ALPRAZolam 1 MG TABLET PO PRN (23:22)
[2020-02-13] MEDS ORDERED: ALPRAZolam 0.25 MG TABLET ONE (23:24)
[2020-02-14 00:03] VITALS: BP 180/88
== END 2020-02-14 00:03 | disposition home or self-care (01) ==
LOC: FER 23:01
DX: F41.9 Anxiety disorder, unspecified (principal); I10 Essential (primary) hypertension
CPT/HCPCS: 99283-25